=== PATIENT | female | born 1955 | race Asian ===

== ENCOUNTER 2018-09-28 17:06 | Emergency (ER) | payer BC ==
[~2018-09-28] VITALS: Ht 170.2 cm; Wt 67.6 kg
[2018-09-28 17:13] VITALS: BP_SYST 128
[2018-09-28] MEDS: IBUPROFEN 600 MG TABLET PO ONE (18:28)
[2018-09-28 18:32] VITALS: BP_SYST 128
== END 2018-09-28 18:32 | disposition home or self-care (01) ==
LOC: SED 17:06
DX: S86.912A Strain of unspecified muscle(s) and tendon(s) at lower leg level, left leg, initial encounter (principal); R03.0 Elevated blood-pressure reading, without diagnosis of hypertension; Z88.0 Allergy status to penicillin; X58.XXXA Exposure to other specified factors, initial encounter; Y93.89 Activity, other specified; Y92.89 Other specified places as the place of occurrence of the external cause; Y99.8 Other external cause status
CPT/HCPCS: 93971; 99284